=== PATIENT | male | born 1960 | race Caucasian/White ===

== ENCOUNTER 2019-02-18 17:47 | Inpatient (IN) | payer OTHER ==
[~2019-02-18] VITALS: Ht 177.8 cm; Wt 94.4 kg
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
[2019-02-18] MEDS ORDERED: HYDROmorphone 2 MG/ML, 1ML ONE (17:57)
[2019-02-18] MEDS ORDERED: ONDANSETRON 2MG/ML, 2ML ONE (17:57)
[2019-02-18] MEDS: HYDROmorphone 1 MG/ML, 1ML INJ IVPush PRN ×3 (18:00→19:30)
[2019-02-18] MEDS ORDERED: ONDANSETRON 2MG/ML, 2ML IVPush ONE (18:00)
[2019-02-18] MEDS ORDERED: SODIUM CHLORIDE FLUSH 10ML SYR IVF ONE (18:00)
[2019-02-18 18:06] LABS: BASOPHILS # (AUTO) 0.05 x10^3/uL (0-0.1); BASOPHILS % (AUTO) 1 % (0-1); EOSINOPHILS # (AUTO) 0.25 x10^3/uL (0-0.4); EOSINOPHILS % (AUTO) 3 % (1-7); LYMPHOCYTES # (AUTO) 2.76 x10^3/uL (1-3.4); LYMPHOCYTES % (AUTO) 31 % (22-44); MD NO; MEAN CORPUSCULAR HEMOGLOBIN 30.9 pg (27.5-34.5); MEAN CORPUSCULAR HGB CONC 33.2 g/dL (33.2-36.2); MEAN CORPUSCULAR VOLUME 93.1 fL (81-97); MEAN PLATELET VOLUME 7.1 fL (7.4-10.4); MONOCYTES # (AUTO) 0.96 x10^3/uL (0.2-0.8); MONOCYTES % (AUTO) 11 % (2-9); NEUTROPHILS # (AUTO) 4.96 x10^3/uL (1.8-6.8); NEUTROPHILS % (AUTO) 55 % (42-75); PLATELET COUNT 443 x10^3/uL (130-400); RED BLOOD COUNT 4.74 x10^6/uL (4.38-5.82); RED CELL DISTRIBUTION WIDTH 13.9 % (9.4-14.8)
[2019-02-18 18:13] LABS: INTERNATIONAL NORMALIZED RATIO 1.01 (0.93-1.1); PROTHROMBIN TIME 10.6 Seconds (9.6-11.5)
--- NOTE | 2019-02-18 18:14 | NUR ---
Last PO intake bowl of soup at 1530 and beer at 1400.
[2019-02-18 18:16] LABS: ALANINE AMINOTRANSFERASE 33 U/L (12-78); ALBUMIN 4.3 g/dL (3.4-5.0); ANION GAP 9 mmol/L (5-15); CALCIUM 8.4 mg/dL (8.5-10.1); CHLORIDE 107 mmol/L (98-107)
[2019-02-18 18:18] LABS: ALKALINE PHOSPHATASE 132 U/L (45-117); BILIRUBIN,TOTAL 0.3 mg/dL (0.2-1.0); TOTAL PROTEIN 7.9 g/dL (6.4-8.2)
[2019-02-18] MEDS ORDERED: [UNRECOGNIZED DRUG - REMARK] (18:32)
[2019-02-18] MEDS ORDERED: BUPR8TAB PO (18:32)
--- NOTE | 2019-02-18 19:11 | NUR ---
Pt return of CT. VSS.
[2019-02-18] MEDS ORDERED: HYDROmorphone 1 MG/ML, 1ML VIAL ONE (19:23)
--- NOTE | 2019-02-18 19:31 | NUR ---
pt medicated for pain and awaiting ortho bed. pt with vss and reports pain is improved as long as he avoids wiggling toes.
[2019-02-18 20:45] VITALS: BP 132/79
[2019-02-18] MEDS ORDERED: ACETAMINOPHEN 325 MG TABLET PO PRN (21:30)
[2019-02-18] MEDS ORDERED: LABETALOL 5MG/ML, 20ML IVPush PRN (21:30)
[2019-02-18] MEDS ORDERED: BISACODYL 10 MG SUPP PR PRN (21:30)
[2019-02-18] MEDS ORDERED: ENALAPRILAT 1.25 MG/ML, 2ML IVPush PRN (21:30)
[2019-02-18] MEDS ORDERED: POTASSIUM CHLORIDE 20 MEQ TAB.ER.PRT PO ONE (21:30)
[2019-02-18] MEDS ORDERED: POLYETHYLENE GLYCOL 17 GM PACKET PO PRN (21:30)
[2019-02-18] MEDS ORDERED: ONDANSETRON 2MG/ML, 2ML IVPush PRN (21:30)
[2019-02-18] MEDS: HEPARIN 5,000 UNITS/ML, 1ML SQ SCH (22:08)
[2019-02-18] MEDS: NICOTINE 21 MG/24 HR PATCH.TD24 TD SCH (22:08)
[2019-02-18] MEDS: OXYcodone/APAP 5/325MG TABLET PO PRN (22:11)
[2019-02-18] MEDS: HYDROmorphone 2 MG/ML, 1ML IVPush PRN ×2 (23:11→23:37)
[2019-02-18] MEDS ORDERED: LISI-424 PO (23:20)
[2019-02-18] MEDS: LACTATED RINGERS 1,000 ML IV SCH (23:37)
[2019-02-19 00:31] VITALS: BP 100/67
[2019-02-19] MEDS: HEPARIN 5,000 UNITS/ML, 1ML SQ SCH ×3 (00:51→22:09)
[2019-02-19] MEDS: HYDROmorphone 2 MG/ML, 1ML IVPush PRN ×7 (02:26→10:26)
[2019-02-19 02:53] VITALS: BP 124/75
[2019-02-19] MEDS: KETOROLAC 30 MG/1 ML IV PRN ×2 (02:56→16:34)
[2019-02-19 04:17] VITALS: BP 109/70
[2019-02-19 04:54] LABS: BASOPHILS # (AUTO) 0.03 x10^3/uL (0-0.1); BASOPHILS % (AUTO) 0 % (0-1); EOSINOPHILS # (AUTO) 0.11 x10^3/uL (0-0.4); EOSINOPHILS % (AUTO) 2 % (1-7); LYMPHOCYTES # (AUTO) 1.74 x10^3/uL (1-3.4); LYMPHOCYTES % (AUTO) 25 % (22-44); MD NO; MEAN CORPUSCULAR HEMOGLOBIN 31.5 pg (27.5-34.5); MEAN CORPUSCULAR HGB CONC 33.9 g/dL (33.2-36.2); MEAN CORPUSCULAR VOLUME 92.9 fL (81-97); MEAN PLATELET VOLUME 7.5 fL (7.4-10.4); MONOCYTES # (AUTO) 0.74 x10^3/uL (0.2-0.8); MONOCYTES % (AUTO) 11 % (2-9); NEUTROPHILS # (AUTO) 4.37 x10^3/uL (1.8-6.8); NEUTROPHILS % (AUTO) 63 % (42-75); PLATELET COUNT 323 x10^3/uL (130-400); RED BLOOD COUNT 4.02 x10^6/uL (4.38-5.82); RED CELL DISTRIBUTION WIDTH 13.8 % (9.4-14.8)
[2019-02-19] MEDS ORDERED: BUPIVACAINE/EPI 0.5% 1:200K ONE (07:55)
[2019-02-19] MEDS: LISINOPRIL 5 MG TABLET PO SCH (07:58)
[2019-02-19] MEDS: SENNA/DOCUSATE TABLET PO SCH (07:58)
[2019-02-19] MEDS ORDERED: LABETALOL 5MG/ML, 20ML IV PRN (08:00)
[2019-02-19] MEDS ORDERED: HALOPERIDOL 5 MG/ML IV PRN (08:00)
[2019-02-19] MEDS ORDERED: MEPERIDINE/PF 25MG/0.5ML IVPush PRN (08:00)
[2019-02-19] MEDS ORDERED: PROCHLORPERAZINE 5 MG/ML, 2ML IV PRN (08:00)
[2019-02-19] MEDS ORDERED: OXYcodone 5 MG/5 ML ORAL.SOL UDC PO PRN (08:00)
[2019-02-19] MEDS ORDERED: hydrALAzine 20 MG/ML, 1ML IV PRN (08:00)
[2019-02-19] MEDS ORDERED: FENTANYL PF 100 MCG/2ML IV PRN (08:00)
[2019-02-19] MEDS ORDERED: METOPROLOL 1 MG/ML, 5ML IV PRN (08:00)
[2019-02-19] MEDS ORDERED: PROMETHAZINE 25 MG/ML, 1ML IV PRN (08:00)
[2019-02-19] MEDS ORDERED: MIDAZOLAM 1 MG/ML, 2ML ONE (08:04)
[2019-02-19] MEDS ORDERED: FENTANYL PF 250 MCG/5ML ONE (08:04)
[2019-02-19] MEDS ORDERED: BUPIVACAINE/EPI 0.5% 1:200K INFIL ONE (08:47)
[2019-02-19] MEDS ORDERED: ROCURONIUM 10MG/ML,5ML ONE (09:33)
[2019-02-19] MEDS ORDERED: GLYCOPYRROLATE 0.2MG/1ML, 5ML ONE (09:33)
[2019-02-19] MEDS ORDERED: SUCCINYLCHOLINE 20 MG/ML, 10ML ONE (09:33)
[2019-02-19] MEDS ORDERED: DEXAMETHASONE 4 MG/ML, 1ML ONE (09:33)
[2019-02-19] MEDS ORDERED: ONDANSETRON 2MG/ML, 2ML ONE (09:33)
[2019-02-19] MEDS ORDERED: NEOSTIGMINE 1 MG/ML, 10ML ONE (09:33)
[2019-02-19] MEDS ORDERED: CEFAZOLIN 1,000 MG ONE (09:33)
[2019-02-19] MEDS ORDERED: PROPOFOL 10 MG/ML, 20ML ONE (09:33)
[2019-02-19] MEDS ORDERED: HYDROmorphone 2 MG/ML, 1ML ONE (10:05)
[2019-02-19] MEDS ORDERED: OXYcodone 5 MG/5 ML ORAL.SOL UDC ONE (10:05)
[2019-02-19] MEDS ORDERED: PROMETHAZINE 25 MG/ML, 1ML ONE (10:11)
[2019-02-19] MEDS ORDERED: MEPERIDINE/PF 25MG/ML,1ML ONE (10:16)
[2019-02-19] MEDS: LACTATED RINGERS 1,000 ML IV SCH (12:03)
[2019-02-19 14:16] VITALS: BP 103/59
[2019-02-19] MEDS: CEFAZOLIN PMX 2GM/50ML 50 ML IVPB SCH (17:18)
[2019-02-19 19:51] VITALS: BP 108/74
[2019-02-19] MEDS: OXYcodone/APAP 5/325MG TABLET PO PRN (19:54)
[2019-02-19] MEDS: NICOTINE 21 MG/24 HR PATCH.TD24 TD SCH (22:09)
[2019-02-20] MEDS: CEFAZOLIN PMX 2GM/50ML 50 ML IVPB SCH (01:43)
[2019-02-20] MEDS: KETOROLAC 30 MG/1 ML IV PRN ×2 (01:48→11:02)
[2019-02-20 01:58] VITALS: BP 93/48
[2019-02-20] MEDS: HEPARIN 5,000 UNITS/ML, 1ML SQ SCH ×2 (05:31→13:09)
[2019-02-20 07:57] VITALS: BP 120/82
[2019-02-20] MEDS: LISINOPRIL 5 MG TABLET PO SCH (08:28)
[2019-02-20] MEDS: SENNA/DOCUSATE TABLET PO SCH (08:28)
== END 2019-02-20 15:20 | disposition home or self-care (01) | DRG 494 ==
LOC: ED 18:55 → EDIP 19:09 → 4NOR 20:30
PROVIDERS: ADMIT Family Medicine; ATTEND Family Medicine
PROC: 0QSG04Z Reposition Right Tibia with Internal Fixation Device, Open Approach (ICD-10-PCS; principal; 2019-02-19 07:30)
DX: S82.241A Displaced spiral fracture of shaft of right tibia, initial encounter for closed fracture (principal); F17.210 Nicotine dependence, cigarettes, uncomplicated; G89.29 Other chronic pain; I10 Essential (primary) hypertension; S82.831A Other fracture of upper and lower end of right fibula, initial encounter for closed fracture; D47.3 Essential (hemorrhagic) thrombocythemia; R74.8 Abnormal levels of other serum enzymes; S82.301A Unspecified fracture of lower end of right tibia, initial encounter for closed fracture; V29.9XXA Motorcycle rider (driver) (passenger) injured in unspecified traffic accident, initial encounter; X50.1XXA Overexertion from prolonged static or awkward postures, initial encounter; Z79.899 Other long term (current) drug therapy; Y92.89 Other specified places as the place of occurrence of the external cause; Y99.8 Other external cause status; Y93.89 Activity, other specified; Z88.8 Allergy status to other drugs, medicaments and biological substances
CPT/HCPCS: 29515; 36415; 71045; 76000; 80053; 80307; 83735; 85025; 85610; 93005; 96374; C1713; G0378; J0690; J1100; J1170; J1644; J1885; J2175; J2250; J2405; J2550; J2704; J2710; J3010; J0330; J7120